=== PATIENT | female | born 1965 | race Caucasian/White ===

== ENCOUNTER 2016-12-01 11:32 | Emergency (ER) | payer MEDICAID ==
[~2016-12-01] VITALS: Ht 160 cm; Wt 70.0 kg
[~2016-12-01 11:32] MED LIST: ALBU8HFA IH; ATOR40TA28 PO; CARV3 PO; FLUD25I SQ; FLUP10 PO; LISI40TA4 PO; METF850T2 PO; MUPI22O NASAL; OXCA300T PO
[2016-12-01 12:02] LABS: GLUCOSE COMMENT 1 Repeated; GLUCOSE,POINT OF CARE 98 MG/DL (70-110)
[2016-12-01 12:21] LABS: BASOPHILS # (AUTO) 0.06 K/uL (0.00-0.20); EOSINOPHILS # (AUTO) 0.07 K/uL (0.00-0.70); HEMOGLOBIN 12.8 g/dL (12.0-16.0); MEAN CORPUSCULAR HEMOGLOBIN 28.3 pg (26.0-34.0); MEAN CORPUSCULAR HGB CONC 32.7 G/dL (31.0-37.0); MEAN CORPUSCULAR VOLUME 86 fL (80-100); MONOCYTES # (AUTO) 0.5 K/uL (0.1-1.0); MONOCYTES % (AUTO) 9.6 % (2.0-9.0); NEUTROPHILS # (AUTO) 3.9 K/uL (1.8-7.7); NEUTROPHILS % (AUTO) 70.2 % (40.0-70.0); PLATELET COUNT (AUTO) 316 K/uL (150-450); RED BLOOD CELL COUNT(AUTO) 4.51 MIL/uL (4.00-5.20); RED CELL DISTRIBUTION WIDTH 14.4 % (11.5-14.5); WHITE BLOOD COUNT (AUTO) 5.5 K/uL (4.5-11.0)
[2016-12-01 12:36] LABS: ANION GAP 6 mmol/L (8-16); CALCIUM, TOTAL 8.9 mg/dL (8.8-10.5); CARBON DIOXIDE 31 mmol/L (22-29); CHLORIDE 103 mmol/L (98-107); CREATININE 0.46 mg/dL (0.60-1.30); GLOMERULAR FILTR. RATE CALC > 60 mL/min (>60); POTASSIUM 3.9 mmol/L (3.5-5.1); SODIUM SERUM 140 mmol/L (136-145); UREA NITROGEN, BLOOD 7 mg/dL (7-18)
[2016-12-01 12:42] LABS: ALANINE AMINOTRANSFERASE 22 U/L (12-78); ALBUMIN 3.3 g/dL (3.4-5.0); ASPARTATE AMINOTRANSFERASE 17 U/L (15-37); BILIRUBIN,TOTAL 0.2 mg/dL (0.1-1.0)
[2016-12-01] MEDS ORDERED: LORazepam 2 MG TABLET PO ONE (15:45)
[2016-12-01] MEDS ORDERED: FluPHENAZine HCL 5 MG TABLET PO ONE (15:45)
[2016-12-01 16:42] VITALS: BP 141/71
== END 2016-12-01 16:56 | disposition home or self-care (01) ==
LOC: EMS 11:34
DX: F41.9 Anxiety disorder, unspecified (principal); F31.9 Bipolar disorder, unspecified; E11.9 Type 2 diabetes mellitus without complications; I10 Essential (primary) hypertension; F17.210 Nicotine dependence, cigarettes, uncomplicated; F19.90 Other psychoactive substance use, unspecified, uncomplicated; Z88.8 Allergy status to other drugs, medicaments and biological substances
CPT/HCPCS: 36415; 80053; 80307; 82962; 85025; 99284; G0480

== ENCOUNTER 2017-11-02 08:58 | Day surgery (SDC) | payer MEDICAID ==
[~2017-11-02] VITALS: Ht 160 cm; Wt 60.9 kg
[~2017-11-02 08:58] MED LIST changes: +CALC1TAB93 PO; +DIPH50 PO; +ESCI20TA PO; +ESOM20CA31 PO; -FLUD25I SQ; -FLUP10 PO; +IPRA4AER IH; +LORA10TA7 PO; -MUPI22O NASAL; -OXCA300T PO; +SODIUM CHLORIDE 0.9% 1,000 ML IV ONE; +TIOT185 IH; +URSO500T9 PO
[2017-11-02] MEDS ORDERED: LIDOCAINE HCL/PF 2% 5 ML VIAL INJ ONE (08:59)
[2017-11-02] MEDS ORDERED: PROPOFOL 1% 20 ML VIAL IVP ONE (08:59)
[2017-11-02] MEDS ORDERED: SODIUM CHLORIDE 0.9% 1,000 ML IV ONE (09:04)
[2017-11-02 10:02] LABS: GLUCOMETER DEV NAME(LOC) SDS 5; GLUCOSE,POINT OF CARE 88 MG/DL (70-110)
== END 2017-11-02 11:50 | disposition home or self-care (01) ==
LOC: SURGERY 08:58
PROVIDERS: ATTEND Internal Medicine Gastroenterology
DX: K63.5 Polyp of colon (principal); K64.8 Other hemorrhoids; K21.9 Gastro-esophageal reflux disease without esophagitis; I10 Essential (primary) hypertension; E11.9 Type 2 diabetes mellitus without complications; F17.210 Nicotine dependence, cigarettes, uncomplicated; B19.20 Unspecified viral hepatitis C without hepatic coma; J44.9 Chronic obstructive pulmonary disease, unspecified; I25.10 Atherosclerotic heart disease of native coronary artery without angina pectoris; F32.9 Major depressive disorder, single episode, unspecified; J98.19 Other pulmonary collapse; F10.21 Alcohol dependence, in remission; F12.21 Cannabis dependence, in remission; F41.9 Anxiety disorder, unspecified; Z86.74 Personal history of sudden cardiac arrest; Z86.73 Personal history of transient ischemic attack (TIA), and cerebral infarction without residual deficits; Z91.048 Other nonmedicinal substance allergy status; Z79.84 Long term (current) use of oral hypoglycemic drugs; Z98.890 Other specified postprocedural states; Z79.899 Other long term (current) drug therapy
CPT/HCPCS: 45385; 82962; 88305; C1769; J2704; J3490; J7030

== ENCOUNTER 2018-01-20 14:53 | Emergency (ER) | payer MEDICAID ==
[~2018-01-20] VITALS: Ht 160 cm; Wt 61.4 kg
[~2018-01-20 14:53] MED LIST changes: -SODIUM CHLORIDE 0.9% 1,000 ML IV ONE
[2018-01-20 15:04] LABS: GLUCOSE,POINT OF CARE 100 MG/DL (70-110)
[2018-01-20 15:34] LABS: BASOPHILS % (AUTO) 1.2 % (0.0-2.0); EOSINOPHILS % (AUTO) 3.3 % (1.0-6.0); HEMATOCRIT 37.7 % (36-46); HEMOGLOBIN 12.5 g/dL (12.0-16.0); LYMPHOCYTES # (AUTO) 1.4 K/uL (1.0-4.8); LYMPHOCYTES % (AUTO) 27.5 % (22.0-44.0); MEAN CORPUSCULAR HEMOGLOBIN 27.5 pg (26.0-34.0); MEAN CORPUSCULAR HGB CONC 33.3 G/dL (31.0-37.0); MEAN CORPUSCULAR VOLUME 83 fL (80-100); MONOCYTES # (AUTO) 0.4 K/uL (0.1-1.0); MONOCYTES % (AUTO) 8.5 % (2.0-9.0); NEUTROPHILS % (AUTO) 59.5 % (40.0-70.0); PLATELET COUNT (AUTO) 376 K/uL (150-450); RED BLOOD CELL COUNT(AUTO) 4.57 MIL/uL (4.00-5.20); RED CELL DISTRIBUTION WIDTH 15.5 % (11.5-14.5)
[2018-01-20 15:48] LABS: ANION GAP 6 mmol/L (8-16); CALCIUM, TOTAL 9.5 mg/dL (8.8-10.5); CARBON DIOXIDE 31 mmol/L (22-29); CHLORIDE 103 mmol/L (98-107); CREATININE 0.71 mg/dL (0.60-1.30); GLOMERULAR FILTR. RATE CALC > 60 mL/min (>60); GLUCOSE,RANDOM 105 mg/dL (70-110); POTASSIUM 3.9 mmol/L (3.5-5.1); SODIUM SERUM 140 mmol/L (136-145); UREA NITROGEN, BLOOD 12 mg/dL (7-18)
[2018-01-20 15:51] LABS: ALANINE AMINOTRANSFERASE 23 U/L (12-78); ALBUMIN 3.4 g/dL (3.4-5.0); ALKALINE PHOSPHATASE 141 U/L (46-116); ASPARTATE AMINOTRANSFERASE 20 U/L (15-37); BILIRUBIN,TOTAL 0.2 mg/dL (0.1-1.0); TOTAL PROTEIN, SERUM 7.4 g/dL (6.4-8.2)
[2018-01-20 16:29] LABS: AMPHET/METH SCREEN,URINE POSITIVE (NEGATIVE); APPEARANCE,URINE CLOUDY (CLEAR); BARBITURATE SCREEN, URINE NEGATIVE (NEGATIVE); BENZODIAZEPINES SCREEN,URINE NEGATIVE (NEGATIVE); BILIRUBIN,URINE NEGATIVE (NEGATIVE); CANNABINOID SCREEN,URINE NEGATIVE (NEGATIVE); COCAINE SCREEN,URINE POSITIVE (NEGATIVE); GLUCOSE, URINE (UA) NEGATIVE (NEGATIVE); KETONES,URINE TRACE mg/dL (NEGATIVE); LEUKOCYTE ESTERASE ,URINE TRACE (NEGATIVE); METHADONE SCREEN, URINE NEGATIVE (NEGATIVE); NITRATE,URINE NEGATIVE (NEGATIVE); OCCULT BLOOD,URINE NEGATIVE (NEGATIVE); OPIATE SCREEN,URINE NEGATIVE (NEGATIVE); PROTEIN,URINE POS 1+ (NEGATIVE)
[2018-01-20 16:31] LABS: PHENCYCLIDINE SCREEN,URINE NEGATIVE (NEGATIVE)
[2018-01-20 16:39] LABS: RBC,URINE None Seen /HPF (0-2)
[2018-01-20 16:40] LABS: BACTERIA,URINE Moderate /HPF (None Seen); SQUAMOUS EPITHELIAL CELL,UR Many /LPF (None Seen)
[2018-01-20 16:41] LABS: CALCIUM OXALATE CRYSTALS,UR Moderate /LPF (None Seen); MUCUS,URINE Few LPF (None Seen)
[2018-01-20] MEDS ORDERED: AZITHROMYCIN 250 MG TABLET PO ONE (17:00)
[2018-01-20] MEDS ORDERED: CefTRIAXone SODIUM 1 GM/VIAL IM ONE (17:00)
[2018-01-20] MEDS ORDERED: FLUCONAZOLE 150 MG TABLET PO ONE (17:00)
[2018-01-20] MEDS ORDERED: MetroNIDAZOLE 500 MG TABLET PO ONE (17:00)
[2018-01-20 20:25] VITALS: BP 122/64
== END 2018-01-20 20:58 | disposition home or self-care (01) ==
LOC: EMS 14:54
DX: N76.0 Acute vaginitis (principal); F15.10 Other stimulant abuse, uncomplicated; F14.10 Cocaine abuse, uncomplicated; R45.851 Suicidal ideations; I10 Essential (primary) hypertension; E11.9 Type 2 diabetes mellitus without complications; F17.210 Nicotine dependence, cigarettes, uncomplicated; Z88.8 Allergy status to other drugs, medicaments and biological substances
CPT/HCPCS: 36415; 80053; 80307; 81001; 82962; 85025; 87086; 96372; 99284; G0480; J0696

== ENCOUNTER 2018-05-17 08:34 | Emergency (ER) | payer MEDICAID ==
[~2018-05-17] VITALS: Ht 154.9 cm; Wt 63.5 kg
[~2018-05-17 08:34] MED LIST changes: +AMLO-511 PO; +ASPI-1182 PO; -CARV3 PO; -DIPH50 PO; +FLUP5 PO; +ISOS30TA6 PO; +METF-961 PO; -METF850T2 PO
[2018-05-17 08:59] LABS: GLUCOSE,POINT OF CARE 193 MG/DL (70-110)
[2018-05-17 09:47] LABS: BASOPHILS % (AUTO) 0.6 % (0.0-2.0); EOSINOPHILS % (AUTO) 3.4 % (1.0-6.0); HEMATOCRIT 40.5 % (36-46); HEMOGLOBIN 13.3 g/dL (12.0-16.0); LYMPHOCYTES # (AUTO) 1.3 K/uL (1.0-4.8); LYMPHOCYTES % (AUTO) 21.6 % (22.0-44.0); MEAN CORPUSCULAR HEMOGLOBIN 26.2 pg (26.0-34.0); MEAN CORPUSCULAR HGB CONC 32.9 G/dL (31.0-37.0); MEAN CORPUSCULAR VOLUME 80 fL (80-100); MONOCYTES # (AUTO) 0.5 K/uL (0.1-1.0); MONOCYTES % (AUTO) 9.1 % (2.0-9.0); NEUTROPHILS # (AUTO) 3.8 K/uL (1.8-7.7); NEUTROPHILS % (AUTO) 65.3 % (40.0-70.0); PLATELET COUNT (AUTO) 353 K/uL (150-450); RED BLOOD CELL COUNT(AUTO) 5.08 MIL/uL (4.00-5.20); RED CELL DISTRIBUTION WIDTH 16.8 % (11.5-14.5)
[2018-05-17 09:52] LABS: ANION GAP 7 mmol/L (8-16); CARBON DIOXIDE 29 mmol/L (22-29); CHLORIDE 104 mmol/L (98-107); CREATININE 0.73 mg/dL (0.60-1.30); GLOMERULAR FILTR. RATE CALC > 60 mL/min (>60); GLUCOSE,RANDOM 114 mg/dL (70-110); POTASSIUM 4.3 mmol/L (3.5-5.1); SODIUM SERUM 140 mmol/L (136-145); UREA NITROGEN, BLOOD 12 mg/dL (7-18)
[2018-05-17 09:57] LABS: ALANINE AMINOTRANSFERASE 21 U/L (12-78); ALBUMIN 3.1 g/dL (3.4-5.0); ALKALINE PHOSPHATASE 166 U/L (46-116); ASPARTATE AMINOTRANSFERASE 16 U/L (15-37); BILIRUBIN,TOTAL 0.4 mg/dL (0.1-1.0); TOTAL PROTEIN, SERUM 7.3 g/dL (6.4-8.2)
[2018-05-17 11:33] LABS: AMPHET/METH SCREEN,URINE POSITIVE (NEGATIVE); BARBITURATE SCREEN, URINE NEGATIVE (NEGATIVE); BENZODIAZEPINES SCREEN,URINE NEGATIVE (NEGATIVE); CANNABINOID SCREEN,URINE NEGATIVE (NEGATIVE); COCAINE SCREEN,URINE NEGATIVE (NEGATIVE); METHADONE SCREEN, URINE NEGATIVE (NEGATIVE); OPIATE SCREEN,URINE NEGATIVE (NEGATIVE)
[2018-05-17 12:07] LABS: PHENCYCLIDINE SCREEN,URINE NEGATIVE (NEGATIVE)
[2018-05-17 12:32] VITALS: BP 144/89
== END 2018-05-17 12:35 | disposition home or self-care (01) ==
LOC: EMS 08:35
DX: F20.9 Schizophrenia, unspecified (principal); F41.9 Anxiety disorder, unspecified; F31.9 Bipolar disorder, unspecified; E11.9 Type 2 diabetes mellitus without complications; E78.00 Pure hypercholesterolemia, unspecified; I10 Essential (primary) hypertension; K21.9 Gastro-esophageal reflux disease without esophagitis; J45.909 Unspecified asthma, uncomplicated; F15.90 Other stimulant use, unspecified, uncomplicated; F17.210 Nicotine dependence, cigarettes, uncomplicated; Z98.890 Other specified postprocedural states; Z79.82 Long term (current) use of aspirin; Z79.84 Long term (current) use of oral hypoglycemic drugs; Z79.899 Other long term (current) drug therapy; Z88.8 Allergy status to other drugs, medicaments and biological substances
CPT/HCPCS: 36415; 80053; 80307; 82962; 85025; 99285; G0480

== ENCOUNTER 2018-06-05 02:46 | Emergency (ER) | payer MEDICAID ==
[~2018-06-05] VITALS: Ht 152.4 cm; Wt 59.1 kg
[2018-06-05 02:58] LABS: GLUCOSE,POINT OF CARE 158 MG/DL (70-110)
[2018-06-05] MEDS ORDERED: IPRATROPIUM BROMIDE 0.5 MG/2.5 ML NEB SOLUTION NEB ONE (03:30)
[2018-06-05] MEDS ORDERED: MethylPREDNISolone SOD SUCC 125 MG/2 ML VIAL IM ONE (03:30)
[2018-06-05] MEDS ORDERED: ALBUTEROL SULFATE 5 MG/ML 20 ML NEB SOLN [BULK] NEB ONE (03:30)
[2018-06-05] MEDS ORDERED: 0.9% SODIUM CHLORIDE 5 ML NEB SOLUTION NEB ONE (03:57)
[2018-06-05] MEDS ORDERED: ALBUTEROL SULFATE 2.5 MG/0.5 ML NEB SOLUTION NEB ONE (04:00)
[2018-06-05 04:30] VITALS: BP 154/76
[2018-06-05] MEDS ORDERED: AZITHROMYCIN 250 MG TABLET PO ONE (04:45)
[2018-06-05] MEDS ORDERED: FUROSEMIDE 20 MG TABLET PO ONE (05:00)
== END 2018-06-05 05:27 | disposition home or self-care (01) ==
LOC: EMS 02:47
DX: J44.9 Chronic obstructive pulmonary disease, unspecified (principal); I11.0 Hypertensive heart disease with heart failure; I50.9 Heart failure, unspecified; K21.9 Gastro-esophageal reflux disease without esophagitis; J45.909 Unspecified asthma, uncomplicated; E11.9 Type 2 diabetes mellitus without complications; E78.00 Pure hypercholesterolemia, unspecified; F41.9 Anxiety disorder, unspecified; F31.9 Bipolar disorder, unspecified; F20.9 Schizophrenia, unspecified; F17.210 Nicotine dependence, cigarettes, uncomplicated; F19.90 Other psychoactive substance use, unspecified, uncomplicated; Z88.8 Allergy status to other drugs, medicaments and biological substances; Z79.82 Long term (current) use of aspirin; Z79.899 Other long term (current) drug therapy; Z79.84 Long term (current) use of oral hypoglycemic drugs
CPT/HCPCS: 71045; 82962; 94640; 96372; 99284; J2930

== ENCOUNTER 2021-06-28 14:36 | Inpatient (IN) | payer MEDICAID ==
[~2021-06-28] VITALS: Ht 154.9 cm; Wt 67.6 kg
[~2021-06-28 14:36] MED LIST changes: +AMLO-257 PO; -AMLO-511 PO; -ASPI-1182 PO; +ASPI-1444 PO; -ESCI20TA PO; +ESCI20TA87 PO; -FLUP5 PO; +FLUP5TAB15 PO; -ISOS30TA6 PO; +ISOS30TA92 PO; -LISI40TA4 PO; +LISI40TA9 PO; +METF-1185 PO; -METF-961 PO; +URSO500T10 PO; -URSO500T9 PO
[2021-06-28] MEDS ORDERED: LORazepam 1 MG TABLET PO ONE (16:15)
[2021-06-28 16:37] LABS: BASOPHILS % (AUTO) 1.7 % (0.0-2.0); EOSINOPHILS % (AUTO) 2.4 % (1.0-6.0); HEMATOCRIT 38.2 % (36-46); HEMOGLOBIN 12.6 g/dL (12.0-16.0); LYMPHOCYTES # (AUTO) 1.4 K/uL (1.0-4.8); LYMPHOCYTES % (AUTO) 31.2 % (22.0-44.0); MEAN CORPUSCULAR HEMOGLOBIN 25.7 pg (26.0-34.0); MEAN CORPUSCULAR HGB CONC 32.8 G/dL (31.0-37.0); MEAN CORPUSCULAR VOLUME 78 fL (80-100); MONOCYTES # (AUTO) 0.4 K/uL (0.1-1.0); MONOCYTES % (AUTO) 9.6 % (2.0-9.0); NEUTROPHILS # (AUTO) 2.4 K/uL (1.8-7.7); NEUTROPHILS % (AUTO) 55.1 % (40.0-70.0); PLATELET COUNT (AUTO) 346 K/uL (150-450); RED CELL DISTRIBUTION WIDTH 15.9 % (11.5-14.5)
[2021-06-28 16:52] LABS: ANION GAP 6 mmol/L (8-16); CARBON DIOXIDE 32 mmol/L (22-29); CHLORIDE 101 mmol/L (98-107); CREATININE 0.71 mg/dL (0.60-1.30); GLOMERULAR FILTR. RATE CALC > 60 mL/min (>60); GLUCOSE,RANDOM 130 mg/dL (70-110); POTASSIUM 3.8 mmol/L (3.5-5.1); SODIUM SERUM 139 mmol/L (136-145); UREA NITROGEN, BLOOD 7 mg/dL (7-18)
[2021-06-28 16:56] LABS: ALANINE AMINOTRANSFERASE 70 U/L (12-78); ALBUMIN 3.5 g/dL (3.4-5.0); ALKALINE PHOSPHATASE 131 U/L (46-116); ASPARTATE AMINOTRANSFERASE 36 U/L (15-37); BILIRUBIN,TOTAL 0.3 mg/dL (0.1-1.0); TOTAL PROTEIN, SERUM 7.9 g/dL (6.4-8.2)
[2021-06-28 16:57] LABS: AMPHET/METH SCREEN,URINE NEGATIVE (NEGATIVE); BARBITURATE SCREEN, URINE NEGATIVE (NEGATIVE); BENZODIAZEPINES SCREEN,URINE NEGATIVE (NEGATIVE); CANNABINOID SCREEN,URINE NEGATIVE (NEGATIVE); COCAINE SCREEN,URINE NEGATIVE (NEGATIVE); METHADONE SCREEN, URINE NEGATIVE (NEGATIVE); OPIATE SCREEN,URINE NEGATIVE (NEGATIVE)
[2021-06-28 16:58] LABS: PHENCYCLIDINE SCREEN,URINE NEGATIVE (NEGATIVE)
[2021-06-28 18:57] LABS: COVID AG,FIA SOURCE NASOPHARYNGEAL
[2021-06-28] MEDS ORDERED: OLANZapine 5 MG RAPDIS TABLET PO PRN (20:30)
[2021-06-28] MEDS ORDERED: ZOLPIDEM TARTRATE 10 MG TABLET PO PRN (20:30)
[2021-06-28] MEDS ORDERED: LORazepam 2 MG TABLET PO PRN (20:30)
[2021-06-28 21:41] LABS: APPEARANCE,URINE CLEAR (CLEAR); BILIRUBIN,URINE NEGATIVE (NEGATIVE); GLUCOSE, URINE (UA) NEGATIVE (NEGATIVE); KETONES,URINE NEGATIVE (NEGATIVE); LEUKOCYTE ESTERASE ,URINE NEGATIVE (NEGATIVE); NITRATE,URINE NEGATIVE (NEGATIVE); OCCULT BLOOD,URINE NEGATIVE (NEGATIVE); PH,URINE 6.5 (5.0-8.0); PROTEIN,URINE NEGATIVE (NEGATIVE); UROBILINOGEN,URINE 0.2 mg/dL (<=1.0)
[2021-06-29] MEDS ORDERED: PNEUMOCOCCAL VACCINE POLYVALENT 0.5 ML VIAL [PPSV23] IM. ONE (01:00)
[2021-06-29] MEDS ORDERED: INFLUENZA VIRUS VACCINE QVS 2021-22 (6MO+)/PF 60 MCG/0.5 ML SYRINGE IM. ONE (01:00)
[2021-06-29] MEDS ORDERED: ACETAMINOPHEN 325 MG TABLET PO PRN (07:45)
[2021-06-29] MEDS ORDERED: GuaiFENesin/D-METHORPHAN [SUGAR-FREE] 200-20MG/10 ML SYRUP UDCUP PO PRN (07:45)
[2021-06-29] MEDS ORDERED: FluPHENAZine HCL 5 MG TABLET PO PRN (07:45)
[2021-06-29] MEDS ORDERED: TUBERCULIN, PURIFIED PROTEIN DERIVATIVE 5 TU/0.1 ML SYRINGE ID ONE (07:45)
[2021-06-29] MEDS ORDERED: PROMETHAZINE HCL 25 MG TABLET PO PRN (07:45)
[2021-06-29] MEDS ORDERED: LOPERAMIDE HCL 2 MG CAPSULE PO PRN (07:45)
[2021-06-29] MEDS ORDERED: MAG HYDROX/AL HYDROX/SIMETH ES 30 ML SUSPENSION UDCUP PO PRN (07:45)
[2021-06-29 08:00] VITALS: BP 146/96
[2021-06-29] MEDS: FOLIC ACID 1 MG TABLET PO SCH (09:00)
[2021-06-29] MEDS: THIAMINE 100 MG TABLET PO SCH ×2 (09:00→16:14)
[2021-06-29] MEDS: OMEGA-3/DHA/EPA/FISH OIL 1,000 MG CAPSULE PO SCH (09:00)
[2021-06-29] MEDS: ESCITALOPRAM OXALATE 10 MG TABLET PO SCH (09:00)
[2021-06-29] MEDS: MULTIVITAMINS WITH MINERALS, THERAPEUTIC TABLET PO SCH (09:00)
[2021-06-29] MEDS: NALTREXONE HCL 50 MG TABLET PO SCH (09:00)
[2021-06-29] MEDS: LISINOPRIL 20 MG TABLET PO SCH (13:15)
[2021-06-29 16:00] VITALS: BP 150/69
[2021-06-29] MEDS ORDERED: PALIPERIDONE PALMITATE 234 MG/1.5 ML SYRINGE IM ONE (20:30)
[2021-06-29] MEDS: MELATONIN 5 MG TABLET PO SCH (20:35)
[2021-06-29] MEDS ORDERED: PALIPERIDONE 3 MG ER TABLET PO SCH (21:00)
[2021-06-29] MEDS ORDERED: FluPHENAZine HCL 10 MG TABLET PO SCH (21:00)
[2021-06-30 08:06] VITALS: BP 127/49
[2021-06-30] MEDS: LISINOPRIL 20 MG TABLET PO SCH (08:24)
[2021-06-30] MEDS: FOLIC ACID 1 MG TABLET PO SCH (08:24)
[2021-06-30] MEDS: ESCITALOPRAM OXALATE 10 MG TABLET PO SCH (08:24)
[2021-06-30] MEDS: MULTIVITAMINS WITH MINERALS, THERAPEUTIC TABLET PO SCH (08:24)
[2021-06-30] MEDS: MAGNESIUM HYDROXIDE SUSPENSION 30 ML UDCUP PO PRN (08:24)
[2021-06-30] MEDS: OMEGA-3/DHA/EPA/FISH OIL 1,000 MG CAPSULE PO SCH (08:24)
[2021-06-30] MEDS: THIAMINE 100 MG TABLET PO SCH ×2 (08:24→16:31)
[2021-06-30] MEDS: NALTREXONE HCL 50 MG TABLET PO SCH (08:25)
[2021-06-30] MEDS: PALIPERIDONE 1.5 MG ER TABLET PO PRN (09:41)
[2021-06-30 10:39] LABS: HEMOGLOBIN A1C 9.2 % (3.8-5.6)
[2021-06-30 10:54] LABS: CHOL/HDL RATIO 2.9 (3.9-5.7); FREE T4 (FREE THYROXINE) 1.32 ng/dL (0.76-1.46); THYROID STIMULATING HORMONE 0.78 uIU/mL (0.36-3.74)
[2021-06-30] MEDS ORDERED: DEXTROSE 50%-WATER 25 GM/50 ML SYRINGE IVP PRN (15:00)
[2021-06-30] MEDS: MetFORMIN HCL 850 MG TABLET PO SCH (16:31)
[2021-06-30 16:36] LABS: GLUCOMETER DEV NAME(LOC) 3E.C; GLUCOSE,POINT OF CARE 196 MG/DL (70-110)
[2021-06-30] MEDS: INSULIN LISPRO 100 UNITS/ML SQ PRN (17:52)
[2021-06-30] MEDS: HydrOXYzine PAMOATE 50 MG CAPSULE PO PRN (18:35)
[2021-06-30] MEDS: ATORVASTATIN CALCIUM 40 MG TABLET PO SCH (20:11)
[2021-06-30] MEDS: MELATONIN 5 MG TABLET PO SCH (20:12)
[2021-06-30 21:06] LABS: GLUCOMETER DEV NAME(LOC) 3E.C; GLUCOSE,POINT OF CARE 114 MG/DL (70-110)
[2021-07-01] MEDS: INSULIN LISPRO 100 UNITS/ML SQ PRN (06:54)
[2021-07-01] MEDS: MetFORMIN HCL 850 MG TABLET PO SCH ×2 (06:54→17:30)
[2021-07-01 06:55] LABS: GLUCOMETER DEV NAME(LOC) 3E.C; GLUCOSE,POINT OF CARE 128 MG/DL (70-110)
[2021-07-01 08:17] VITALS: BP 150/64
[2021-07-01] MEDS: THIAMINE 100 MG TABLET PO SCH ×2 (08:29→16:41)
[2021-07-01] MEDS: ESCITALOPRAM OXALATE 10 MG TABLET PO SCH (08:29)
[2021-07-01] MEDS: NALTREXONE HCL 50 MG TABLET PO SCH (08:29)
[2021-07-01] MEDS: MULTIVITAMINS WITH MINERALS, THERAPEUTIC TABLET PO SCH (08:29)
[2021-07-01] MEDS: FOLIC ACID 1 MG TABLET PO SCH (08:29)
[2021-07-01] MEDS: OMEGA-3/DHA/EPA/FISH OIL 1,000 MG CAPSULE PO SCH (08:29)
[2021-07-01] MEDS: LISINOPRIL 20 MG TABLET PO SCH (08:29)
[2021-07-01] MEDS: MAGNESIUM HYDROXIDE SUSPENSION 30 ML UDCUP PO PRN (09:18)
[2021-07-01 11:35] LABS: GLUCOMETER DEV NAME(LOC) 3E.C; GLUCOSE,POINT OF CARE 140 MG/DL (70-110)
[2021-07-01 16:33] LABS: GLUCOMETER DEV NAME(LOC) 3E.C; GLUCOSE,POINT OF CARE 125 MG/DL (70-110)
[2021-07-01] MEDS: HydrOXYzine PAMOATE 50 MG CAPSULE PO PRN (16:41)
[2021-07-01 17:09] VITALS: BP 133/66
[2021-07-01] MEDS: ATORVASTATIN CALCIUM 40 MG TABLET PO SCH (20:56)
[2021-07-01] MEDS: MELATONIN 5 MG TABLET PO SCH (20:56)
[2021-07-01 21:14] LABS: GLUCOMETER DEV NAME(LOC) 3E.C; GLUCOSE,POINT OF CARE 92 MG/DL (70-110)
[2021-07-02 06:47] LABS: GLUCOMETER DEV NAME(LOC) 3E.C; GLUCOSE,POINT OF CARE 149 MG/DL (70-110)
[2021-07-02] MEDS: MetFORMIN HCL 850 MG TABLET PO SCH ×2 (06:50→17:30)
[2021-07-02] MEDS: INSULIN LISPRO 100 UNITS/ML SQ PRN ×2 (06:51→17:30)
[2021-07-02 08:19] VITALS: BP 164/81
[2021-07-02] MEDS: ESCITALOPRAM OXALATE 10 MG TABLET PO SCH (08:45)
[2021-07-02] MEDS: HydrOXYzine PAMOATE 50 MG CAPSULE PO PRN (08:45)
[2021-07-02] MEDS: MULTIVITAMINS WITH MINERALS, THERAPEUTIC TABLET PO SCH (08:45)
[2021-07-02] MEDS: LISINOPRIL 20 MG TABLET PO SCH (08:45)
[2021-07-02] MEDS: THIAMINE 100 MG TABLET PO SCH ×2 (08:45→16:25)
[2021-07-02] MEDS: OMEGA-3/DHA/EPA/FISH OIL 1,000 MG CAPSULE PO SCH (08:45)
[2021-07-02] MEDS: FOLIC ACID 1 MG TABLET PO SCH (08:45)
[2021-07-02] MEDS: PALIPERIDONE 1.5 MG ER TABLET PO PRN (08:46)
[2021-07-02] MEDS: NALTREXONE HCL 50 MG TABLET PO SCH (08:46)
[2021-07-02] MEDS: MAGNESIUM HYDROXIDE SUSPENSION 30 ML UDCUP PO PRN (08:48)
[2021-07-02] MEDS ORDERED: CALCIUM OYSTER SHELL 250 MG-VIT D3 125 UNITS TABLET PO SCH (09:00)
[2021-07-02] MEDS ORDERED: ESOMEPRAZOLE MAG TRIHYDRATE 20 MG CAPSULE PO SCH (09:00)
[2021-07-02] MEDS ORDERED: AmLODIPine BESYLATE 5 MG TABLET PO SCH (09:00)
[2021-07-02] MEDS ORDERED: ASPIRIN 81 MG CHEWABLE TABLET PO SCH (09:00)
[2021-07-02] MEDS ORDERED: LORATADINE 10 MG TABLET PO SCH (09:00)
[2021-07-02 11:52] LABS: GLUCOMETER DEV NAME(LOC) 3E.C; GLUCOSE,POINT OF CARE 118 MG/DL (70-110)
[2021-07-02] MEDS ORDERED: OMEG-135 PO (15:19)
[2021-07-02] MEDS ORDERED: MELA5TAB40 PO (15:19)
[2021-07-02] MEDS ORDERED: PALI117D IM (15:19)
[2021-07-02] MEDS ORDERED: NALT50TA PO (15:19)
[2021-07-02] MEDS ORDERED: ESCI10 PO (15:19)
[2021-07-02 15:51] LABS: GLUCOMETER DEV NAME(LOC) 3E.C; GLUCOSE,POINT OF CARE 221 MG/DL (70-110)
[2021-07-02 16:16] VITALS: BP 151/81
[2021-07-02] MEDS ORDERED: PALIPERIDONE PALMITATE 156 MG/ML SYRINGE IM ONE (16:30)
[2021-07-02] MEDS ORDERED: LORA10TA7 PO (16:41)
[2021-07-03] MEDS ORDERED: PALIPERIDONE PALMITATE 156 MG/ML SYRINGE IM ONE (09:00)
== END 2021-07-02 19:30 | disposition home or self-care (01) | DRG 750 ==
LOC: EMS 14:36 → 3EC 20:29
PROVIDERS: ADMIT Psychiatry & Neurology Psychiatry; ATTEND Psychiatry & Neurology Psychiatry
DX: F25.9 Schizoaffective disorder, unspecified (principal); E11.9 Type 2 diabetes mellitus without complications; E78.00 Pure hypercholesterolemia, unspecified; E78.5 Hyperlipidemia, unspecified; F17.210 Nicotine dependence, cigarettes, uncomplicated; Z20.822 Contact with and (suspected) exposure to COVID-19; F41.9 Anxiety disorder, unspecified; K21.9 Gastro-esophageal reflux disease without esophagitis; F60.0 Paranoid personality disorder; I10 Essential (primary) hypertension; J44.9 Chronic obstructive pulmonary disease, unspecified; Z55.9 Problems related to education and literacy, unspecified; Z59.9 Problem related to housing and economic circumstances, unspecified; Z63.9 Problem related to primary support group, unspecified; Z65.3 Problems related to other legal circumstances; Z85.118 Personal history of other malignant neoplasm of bronchus and lung; Z87.01 Personal history of pneumonia (recurrent); Z91.14 Patient's other noncompliance with medication regimen; Z91.19 Patient's noncompliance with other medical treatment and regimen; Z28.21 Immunization not carried out because of patient refusal; Z88.8 Allergy status to other drugs, medicaments and biological substances; Z79.899 Other long term (current) drug therapy; Z79.82 Long term (current) use of aspirin
CPT/HCPCS: 80053; 80061; 81003; 82962; 83036; 83880; 84439; 84443; 85025; 86592; 93005; 99285; G0480; Q9967

== ENCOUNTER 2022-01-25 08:42 | Inpatient (IN) | payer MEDICAID ==
[~2022-01-25] VITALS: Ht 154.9 cm; Wt 68.5 kg
[~2022-01-25 08:42] MED LIST changes: +AMIO200 PO; -AMLO-257 PO; +APIX5TAB PO; +ATOR40TA71 PO; -CALC1TAB93 PO; +ESCI10 PO; -ESCI20TA87 PO; -ESOM20CA31 PO; -FLUP5TAB15 PO; -IPRA4AER IH; -ISOS30TA92 PO; +MAG30ORA11 PO; +MELA5TAB40 PO; +METO25 PO; +NALT50TA PO; +OLAN5TAB52 PO; +OMEG-135 PO; +PALI117D IM; +POLY238P PO; +RISP1TAB98 PO; -TIOT185 IH; -URSO500T10 PO
[2022-01-25 09:19] LABS: BASOPHILS % (AUTO) 1.1 % (0.0-2.0); EOSINOPHILS % (AUTO) 1.6 % (1.0-6.0); HEMATOCRIT 35.6 % (36-46); HEMOGLOBIN 11.3 g/dL (12.0-16.0); LYMPHOCYTES # (AUTO) 1.2 K/uL (1.0-4.8); LYMPHOCYTES % (AUTO) 20.3 % (22.0-44.0); MEAN CORPUSCULAR HEMOGLOBIN 23.9 pg (26.0-34.0); MEAN CORPUSCULAR HGB CONC 31.7 G/dL (31.0-37.0); MEAN CORPUSCULAR VOLUME 75 fL (80-100); MONOCYTES # (AUTO) 0.3 K/uL (0.1-1.0); MONOCYTES % (AUTO) 5.6 % (2.0-9.0); NEUTROPHILS # (AUTO) 4.2 K/uL (1.8-7.7); NEUTROPHILS % (AUTO) 71.4 % (40.0-70.0); PLATELET COUNT (AUTO) 384 K/uL (150-450); RED BLOOD CELL COUNT(AUTO) 4.73 MIL/uL (4.00-5.20)
[2022-01-25 09:36] LABS: COVID AG,FIA SOURCE NASOPHARYNGEAL
[2022-01-25 09:37] LABS: ALANINE AMINOTRANSFERASE 30 U/L (12-78); ALBUMIN 2.9 g/dL (3.4-5.0); ALKALINE PHOSPHATASE 136 U/L (46-116); ANION GAP 6 mmol/L (8-16); ASPARTATE AMINOTRANSFERASE 23 U/L (15-37); BILIRUBIN,TOTAL 0.3 mg/dL (0.1-1.0); CARBON DIOXIDE 27 mmol/L (22-29); CHLORIDE 101 mmol/L (98-107); CREATININE 0.58 mg/dL (0.60-1.30); GLUCOSE,RANDOM 119 mg/dL (70-110); POTASSIUM 4.1 mmol/L (3.5-5.1); SODIUM SERUM 134 mmol/L (136-145); TOTAL PROTEIN, SERUM 7.1 g/dL (6.4-8.2); UREA NITROGEN, BLOOD 12 mg/dL (7-18)
[2022-01-25 09:38] LABS: GLOMERULAR FILTR. RATE CALC > 60 mL/min (>60)
[2022-01-25 14:45] VITALS: BP 165/73
[2022-01-25] MEDS ORDERED: ALBUTEROL SULFATE HFA 90 MCG/PUFF 8 GM INHALER IH PRN (15:45)
[2022-01-25 16:00] VITALS: BP 204/93
[2022-01-25] MEDS: METOPROLOL TARTRATE 25 MG TABLET PO SCH (16:37)
[2022-01-25] MEDS: APIXABAN 5 MG TABLET PO SCH (16:37)
[2022-01-25] MEDS: MetFORMIN HCL 850 MG TABLET PO SCH (16:37)
[2022-01-25] MEDS: AmLODIPine BESYLATE 5 MG TABLET PO SCH (16:38)
[2022-01-25 18:00] VITALS: BP 170/85
[2022-01-25] MEDS ORDERED: CloNIDine HCL 0.1 MG TABLET PO PRN (20:00)
[2022-01-25] MEDS ORDERED: DOCUSATE SODIUM 100 MG CAPSULE PO PRN (20:00)
[2022-01-25 20:10] VITALS: BP 165/86
[2022-01-25 21:10] VITALS: BP 145/84
[2022-01-25] MEDS: ATORVASTATIN CALCIUM 40 MG TABLET PO SCH (21:58)
[2022-01-26] MEDS: MetFORMIN HCL 850 MG TABLET PO SCH ×2 (06:51→16:09)
[2022-01-26] MEDS ORDERED: NICOTINE 14 MG/24 HOUR PATCH TD PRN (07:00)
[2022-01-26] MEDS ORDERED: IBUPROFEN 400 MG TABLET PO PRN (07:00)
[2022-01-26] MEDS ORDERED: ACETAMINOPHEN 325 MG TABLET PO PRN (07:00)
[2022-01-26] MEDS ORDERED: PETROLATUM,WHITE 28 GM JELLY TP PRN (07:00)
[2022-01-26] MEDS ORDERED: LOPERAMIDE HCL 2 MG CAPSULE PO PRN (07:00)
[2022-01-26] MEDS ORDERED: ALBUTEROL SULFATE HFA 90 MCG/PUFF 8 GM INHALER IH PRN (07:00)
[2022-01-26] MEDS ORDERED: ONDANSETRON HCL 4 MG TABLET PO PRN (07:00)
[2022-01-26] MEDS ORDERED: GuaiFENesin/D-METHORPHAN [SUGAR-FREE] 200-20MG/10 ML SYRUP UDCUP PO PRN (07:00)
[2022-01-26 08:28] VITALS: BP 140/60
[2022-01-26] MEDS: AmLODIPine BESYLATE 5 MG TABLET PO SCH (08:36)
[2022-01-26] MEDS: METOPROLOL TARTRATE 25 MG TABLET PO SCH ×2 (08:36→16:10)
[2022-01-26] MEDS: APIXABAN 5 MG TABLET PO SCH ×2 (08:36→16:10)
[2022-01-26] MEDS: RisperiDONE 1 MG TABLET PO SCH (16:10)
[2022-01-26 16:32] VITALS: BP 132/60
[2022-01-26] MEDS: ATORVASTATIN CALCIUM 40 MG TABLET PO SCH (20:36)
[2022-01-26] MEDS: OLANZapine 5 MG TABLET PO SCH (20:36)
[2022-01-27 06:34] LABS: HEMOGLOBIN A1C 6.8 % (3.8-5.6)
[2022-01-27] MEDS: MetFORMIN HCL 850 MG TABLET PO SCH ×2 (06:36→16:36)
[2022-01-27 06:38] LABS: ALANINE AMINOTRANSFERASE 23 U/L (12-78); ALBUMIN 2.8 g/dL (3.4-5.0); ALKALINE PHOSPHATASE 123 U/L (46-116); ANION GAP 7 mmol/L (8-16); ASPARTATE AMINOTRANSFERASE 17 U/L (15-37); BILIRUBIN,TOTAL 0.5 mg/dL (0.1-1.0); CALCIUM, TOTAL 9.1 mg/dL (8.8-10.5); CARBON DIOXIDE 27 mmol/L (22-29); CHLORIDE 103 mmol/L (98-107); CREATININE 0.62 mg/dL (0.60-1.30); GLUCOSE,RANDOM 102 mg/dL (70-110); POTASSIUM 3.9 mmol/L (3.5-5.1); SODIUM SERUM 137 mmol/L (136-145); TOTAL PROTEIN, SERUM 6.6 g/dL (6.4-8.2); UREA NITROGEN, BLOOD 8 mg/dL (7-18)
[2022-01-27 06:40] LABS: GLOMERULAR FILTR. RATE CALC > 60 mL/min (>60)
[2022-01-27 07:57] LABS: CHOL/HDL RATIO 3.4 (3.9-5.7); CHOLESTEROL 186 mg/dL (131-200); HDL CHOLESTEROL 54 mg/dL (40-60); LDL CHOL (CALC.) 111 mg/dL (0-130); TRIGLYCERIDES 104 mg/dL (15-150)
[2022-01-27 08:00] VITALS: BP 133/69
[2022-01-27] MEDS: METOPROLOL TARTRATE 25 MG TABLET PO SCH ×2 (08:18→16:46)
[2022-01-27] MEDS: AmLODIPine BESYLATE 5 MG TABLET PO SCH (08:18)
[2022-01-27] MEDS: APIXABAN 5 MG TABLET PO SCH ×2 (08:18→16:20)
[2022-01-27] MEDS: RisperiDONE 1 MG TABLET PO SCH ×2 (08:19→16:21)
[2022-01-27 16:01] VITALS: BP 121/49
[2022-01-27] MEDS: ATORVASTATIN CALCIUM 40 MG TABLET PO SCH (20:17)
[2022-01-27] MEDS: OLANZapine 5 MG TABLET PO SCH (20:17)
[2022-01-27] MEDS: DOCUSATE SODIUM 100 MG CAPSULE PO PRN (20:21)
[2022-01-28] MEDS: MetFORMIN HCL 850 MG TABLET PO SCH ×2 (06:55→16:30)
[2022-01-28] MEDS: APIXABAN 5 MG TABLET PO SCH ×2 (08:20→16:28)
[2022-01-28] MEDS: AmLODIPine BESYLATE 5 MG TABLET PO SCH (08:21)
[2022-01-28] MEDS: METOPROLOL TARTRATE 25 MG TABLET PO SCH ×2 (08:21→16:28)
[2022-01-28] MEDS: RisperiDONE 1 MG TABLET PO SCH ×2 (08:22→16:29)
[2022-01-28 08:40] VITALS: BP 131/58
[2022-01-28 16:25] VITALS: BP 128/79
[2022-01-28] MEDS: MAGNESIUM HYDROXIDE SUSPENSION 30 ML UDCUP PO PRN (16:57)
[2022-01-28] MEDS: ATORVASTATIN CALCIUM 40 MG TABLET PO SCH (20:34)
[2022-01-28] MEDS: OLANZapine 5 MG TABLET PO SCH (20:34)
[2022-01-29] MEDS: MetFORMIN HCL 850 MG TABLET PO SCH ×2 (06:55→16:55)
[2022-01-29 08:00] VITALS: BP 151/58
[2022-01-29] MEDS: METOPROLOL TARTRATE 25 MG TABLET PO SCH ×2 (08:39→16:55)
[2022-01-29] MEDS: AmLODIPine BESYLATE 5 MG TABLET PO SCH (08:39)
[2022-01-29] MEDS: RisperiDONE 1 MG TABLET PO SCH ×2 (08:39→16:55)
[2022-01-29] MEDS: APIXABAN 5 MG TABLET PO SCH ×2 (08:40→16:55)
[2022-01-29 16:10] VITALS: BP 107/60
[2022-01-29] MEDS: ATORVASTATIN CALCIUM 40 MG TABLET PO SCH (20:14)
[2022-01-29] MEDS: OLANZapine 5 MG TABLET PO SCH (20:14)
[2022-01-29] MEDS: MAGNESIUM HYDROXIDE SUSPENSION 30 ML UDCUP PO PRN (20:55)
[2022-01-30 08:57] VITALS: BP 128/60
[2022-01-30 09:00] VITALS: BP 128/60
[2022-01-30] MEDS: RisperiDONE 1 MG TABLET PO SCH ×2 (09:12→16:04)
[2022-01-30] MEDS: METOPROLOL TARTRATE 25 MG TABLET PO SCH ×2 (09:12→16:05)
[2022-01-30] MEDS: AmLODIPine BESYLATE 5 MG TABLET PO SCH (09:12)
[2022-01-30] MEDS: APIXABAN 5 MG TABLET PO SCH ×2 (09:17→16:04)
[2022-01-30 16:32] VITALS: BP 118/60
[2022-01-30] MEDS: MetFORMIN HCL 850 MG TABLET PO SCH ×2 (16:53→17:12)
[2022-01-30] MEDS: OLANZapine 5 MG TABLET PO SCH (20:06)
[2022-01-30] MEDS: ATORVASTATIN CALCIUM 40 MG TABLET PO SCH (20:06)
[2022-01-30 20:22] VITALS: BP 130/55
[2022-01-31] MEDS: MetFORMIN HCL 850 MG TABLET PO SCH ×2 (06:50→16:09)
[2022-01-31 07:10] LABS: COVID AG,FIA SOURCE NASAL SWAB
[2022-01-31] MEDS: RisperiDONE 1 MG TABLET PO SCH ×2 (08:15→16:10)
[2022-01-31] MEDS: APIXABAN 5 MG TABLET PO SCH ×2 (08:15→16:09)
[2022-01-31] MEDS: METOPROLOL TARTRATE 25 MG TABLET PO SCH ×2 (08:16→16:10)
[2022-01-31] MEDS: AmLODIPine BESYLATE 5 MG TABLET PO SCH (08:16)
[2022-01-31 08:30] VITALS: BP 126/57
[2022-01-31 16:04] VITALS: BP 120/69
[2022-01-31 17:46] LABS: GLUCOMETER DEV NAME(LOC) 3EX.; GLUCOSE,POINT OF CARE 96 MG/DL (70-110)
[2022-01-31] MEDS: ATORVASTATIN CALCIUM 40 MG TABLET PO SCH (20:03)
[2022-01-31] MEDS: OLANZapine 5 MG TABLET PO SCH (20:03)
[2022-02-01 01:15] VITALS: BP 152/58
[2022-02-01] MEDS: ZOLPIDEM TARTRATE 10 MG TABLET PO PRN ×2 (01:15→20:19)
[2022-02-01] MEDS: MetFORMIN HCL 850 MG TABLET PO SCH ×2 (06:48→17:40)
[2022-02-01 07:31] LABS: GLUCOMETER DEV NAME(LOC) 3E.I 2; GLUCOSE,POINT OF CARE 102 MG/DL (70-110)
[2022-02-01 08:00] VITALS: BP 121/52
[2022-02-01] MEDS: APIXABAN 5 MG TABLET PO SCH ×2 (10:31→17:40)
[2022-02-01] MEDS: AmLODIPine BESYLATE 5 MG TABLET PO SCH (10:33)
[2022-02-01] MEDS: RisperiDONE 1 MG TABLET PO SCH ×2 (10:33→17:40)
[2022-02-01] MEDS: METOPROLOL TARTRATE 25 MG TABLET PO SCH ×2 (10:40→17:40)
[2022-02-01 16:00] VITALS: BP 104/68
[2022-02-01 16:37] LABS: GLUCOMETER DEV NAME(LOC) 3E.I 2; GLUCOSE,POINT OF CARE 119 MG/DL (70-110)
[2022-02-01] MEDS: OLANZapine 5 MG TABLET PO SCH (20:19)
[2022-02-01] MEDS: ATORVASTATIN CALCIUM 40 MG TABLET PO SCH (20:19)
[2022-02-02 06:41] LABS: GLUCOMETER DEV NAME(LOC) 3E.I 2; GLUCOSE,POINT OF CARE 103 MG/DL (70-110)
[2022-02-02] MEDS: MetFORMIN HCL 850 MG TABLET PO SCH ×2 (06:47→16:38)
[2022-02-02] MEDS: APIXABAN 5 MG TABLET PO SCH ×2 (08:41→16:38)
[2022-02-02] MEDS: RisperiDONE 1 MG TABLET PO SCH ×2 (08:43→16:38)
[2022-02-02] MEDS: METOPROLOL TARTRATE 25 MG TABLET PO SCH ×2 (08:43→16:38)
[2022-02-02] MEDS: AmLODIPine BESYLATE 5 MG TABLET PO SCH (08:43)
[2022-02-02 08:52] VITALS: BP 138/85
[2022-02-02 16:11] VITALS: BP 108/65
[2022-02-02 16:26] LABS: GLUCOMETER DEV NAME(LOC) 3EX.; GLUCOSE,POINT OF CARE 127 MG/DL (70-110)
[2022-02-02] MEDS: ATORVASTATIN CALCIUM 40 MG TABLET PO SCH (21:14)
[2022-02-02] MEDS: OLANZapine 5 MG TABLET PO SCH (21:14)
[2022-02-03 00:10] VITALS: BP 130/56
[2022-02-03] MEDS: ZOLPIDEM TARTRATE 10 MG TABLET PO PRN ×2 (00:13→20:06)
[2022-02-03 06:21] LABS: GLUCOMETER DEV NAME(LOC) 3EX.; GLUCOSE,POINT OF CARE 101 MG/DL (70-110)
[2022-02-03] MEDS: MetFORMIN HCL 850 MG TABLET PO SCH ×2 (06:46→16:39)
[2022-02-03 08:05] VITALS: BP 139/60
[2022-02-03] MEDS: AmLODIPine BESYLATE 5 MG TABLET PO SCH (09:14)
[2022-02-03] MEDS: METOPROLOL TARTRATE 25 MG TABLET PO SCH ×2 (09:14→16:39)
[2022-02-03] MEDS: APIXABAN 5 MG TABLET PO SCH ×2 (09:15→16:39)
[2022-02-03] MEDS: RisperiDONE 1 MG TABLET PO SCH ×2 (09:16→16:40)
[2022-02-03 16:25] LABS: GLUCOMETER DEV NAME(LOC) 3EX.; GLUCOSE,POINT OF CARE 157 MG/DL (70-110)
[2022-02-03 16:28] VITALS: BP 158/68
[2022-02-03] MEDS: OLANZapine 5 MG TABLET PO SCH (20:05)
[2022-02-03] MEDS: ATORVASTATIN CALCIUM 40 MG TABLET PO SCH (20:06)
[2022-02-04 06:26] LABS: GLUCOMETER DEV NAME(LOC) 3E.I 2; GLUCOSE,POINT OF CARE 103 MG/DL (70-110)
[2022-02-04] MEDS: MetFORMIN HCL 850 MG TABLET PO SCH ×2 (06:46→16:17)
[2022-02-04 09:56] VITALS: BP 123/60
[2022-02-04] MEDS: APIXABAN 5 MG TABLET PO SCH ×2 (10:48→16:17)
[2022-02-04] MEDS: METOPROLOL TARTRATE 25 MG TABLET PO SCH ×2 (10:49→16:17)
[2022-02-04] MEDS: RisperiDONE 1 MG TABLET PO SCH ×2 (10:49→16:17)
[2022-02-04] MEDS: AmLODIPine BESYLATE 5 MG TABLET PO SCH (10:49)
[2022-02-04 16:14] VITALS: BP 106/56
[2022-02-04 17:27] LABS: GLUCOMETER DEV NAME(LOC) 3E.I 2; GLUCOSE,POINT OF CARE 186 MG/DL (70-110)
[2022-02-04] MEDS: ATORVASTATIN CALCIUM 40 MG TABLET PO SCH (20:04)
[2022-02-04] MEDS: ZOLPIDEM TARTRATE 10 MG TABLET PO PRN (20:04)
[2022-02-04] MEDS: OLANZapine 5 MG TABLET PO SCH (20:04)
[2022-02-05 06:31] LABS: GLUCOMETER DEV NAME(LOC) 3E.I 2; GLUCOSE,POINT OF CARE 87 MG/DL (70-110)
[2022-02-05] MEDS: MetFORMIN HCL 850 MG TABLET PO SCH ×2 (06:53→16:43)
[2022-02-05 09:22] VITALS: BP 114/60
[2022-02-05] MEDS: APIXABAN 5 MG TABLET PO SCH ×2 (09:53→16:08)
[2022-02-05] MEDS: RisperiDONE 1 MG TABLET PO SCH ×2 (09:53→16:08)
[2022-02-05] MEDS: AmLODIPine BESYLATE 5 MG TABLET PO SCH (09:53)
[2022-02-05] MEDS: METOPROLOL TARTRATE 25 MG TABLET PO SCH ×2 (09:54→16:09)
[2022-02-05 16:20] VITALS: BP 106/68
[2022-02-05 16:46] LABS: GLUCOMETER DEV NAME(LOC) 3EX.; GLUCOSE,POINT OF CARE 144 MG/DL (70-110)
[2022-02-05] MEDS: DOCUSATE SODIUM 100 MG CAPSULE PO PRN (16:48)
[2022-02-05] MEDS: ATORVASTATIN CALCIUM 40 MG TABLET PO SCH (20:16)
[2022-02-05] MEDS: OLANZapine 5 MG TABLET PO SCH (20:20)
[2022-02-06] MEDS: ZOLPIDEM TARTRATE 10 MG TABLET PO PRN ×2 (02:12→22:27)
[2022-02-06 02:29] VITALS: BP 114/62
[2022-02-06 06:31] LABS: GLUCOMETER DEV NAME(LOC) 3E.I 2; GLUCOSE,POINT OF CARE 83 MG/DL (70-110)
[2022-02-06] MEDS: MetFORMIN HCL 850 MG TABLET PO SCH ×2 (06:47→16:31)
[2022-02-06] MEDS: RisperiDONE 1 MG TABLET PO SCH ×2 (08:42→16:31)
[2022-02-06] MEDS: AmLODIPine BESYLATE 5 MG TABLET PO SCH (08:44)
[2022-02-06] MEDS: APIXABAN 5 MG TABLET PO SCH ×2 (08:44→16:31)
[2022-02-06] MEDS: METOPROLOL TARTRATE 25 MG TABLET PO SCH ×2 (08:44→16:31)
[2022-02-06 09:26] VITALS: BP 122/61
[2022-02-06 09:33] VITALS: BP 122/61
[2022-02-06 16:08] VITALS: BP 129/79
[2022-02-06 17:51] LABS: GLUCOMETER DEV NAME(LOC) 3E.I 2; GLUCOSE,POINT OF CARE 100 MG/DL (70-110)
[2022-02-06] MEDS: ATORVASTATIN CALCIUM 40 MG TABLET PO SCH (20:29)
[2022-02-06] MEDS: OLANZapine 5 MG TABLET PO SCH (20:29)
[2022-02-07 06:21] LABS: GLUCOMETER DEV NAME(LOC) 3E.I 2; GLUCOSE,POINT OF CARE 96 MG/DL (70-110)
[2022-02-07] MEDS: MetFORMIN HCL 850 MG TABLET PO SCH ×2 (06:53→16:33)
[2022-02-07 07:46] LABS: COVID AG,FIA SOURCE NASAL SWAB
[2022-02-07 08:12] VITALS: BP 127/62
[2022-02-07] MEDS: AmLODIPine BESYLATE 5 MG TABLET PO SCH (09:41)
[2022-02-07] MEDS: RisperiDONE 1 MG TABLET PO SCH ×2 (09:41→16:32)
[2022-02-07] MEDS: APIXABAN 5 MG TABLET PO SCH ×2 (09:42→16:32)
[2022-02-07] MEDS: METOPROLOL TARTRATE 25 MG TABLET PO SCH ×2 (09:42→16:46)
[2022-02-07] MEDS: LORazepam 2 MG TABLET PO PRN (12:40)
[2022-02-07 16:17] VITALS: BP 112/45
[2022-02-07 16:30] VITALS: BP 125/62
[2022-02-07 18:17] LABS: GLUCOMETER DEV NAME(LOC) 3E.I 2; GLUCOSE,POINT OF CARE 116 MG/DL (70-110)
[2022-02-07] MEDS: ATORVASTATIN CALCIUM 40 MG TABLET PO SCH (20:58)
[2022-02-07] MEDS: OLANZapine 5 MG TABLET PO SCH (20:59)
[2022-02-07] MEDS: ZOLPIDEM TARTRATE 10 MG TABLET PO PRN (21:02)
[2022-02-08 06:22] LABS: GLUCOMETER DEV NAME(LOC) 3E.I 2; GLUCOSE,POINT OF CARE 109 MG/DL (70-110)
[2022-02-08] MEDS: MetFORMIN HCL 850 MG TABLET PO SCH ×2 (06:45→16:45)
[2022-02-08 08:30] VITALS: BP 102/59
[2022-02-08] MEDS: RisperiDONE 1 MG TABLET PO SCH ×2 (08:40→16:44)
[2022-02-08] MEDS: APIXABAN 5 MG TABLET PO SCH ×2 (08:40→16:43)
[2022-02-08] MEDS: METOPROLOL TARTRATE 25 MG TABLET PO SCH ×2 (09:00→16:44)
[2022-02-08] MEDS: AmLODIPine BESYLATE 5 MG TABLET PO SCH (09:00)
[2022-02-08 16:41] LABS: GLUCOMETER DEV NAME(LOC) 3EX.; GLUCOSE,POINT OF CARE 131 MG/DL (70-110)
[2022-02-08 16:52] VITALS: BP 121/98
[2022-02-08] MEDS: ATORVASTATIN CALCIUM 40 MG TABLET PO SCH (20:10)
[2022-02-08] MEDS: OLANZapine 5 MG TABLET PO SCH (20:10)
[2022-02-09 05:26] LABS: GLUCOMETER DEV NAME(LOC) 3E.I 2; GLUCOSE,POINT OF CARE 106 MG/DL (70-110)
[2022-02-09] MEDS: MetFORMIN HCL 850 MG TABLET PO SCH ×2 (07:02→16:44)
[2022-02-09] MEDS: RisperiDONE 1 MG TABLET PO SCH ×2 (08:37→16:44)
[2022-02-09] MEDS: APIXABAN 5 MG TABLET PO SCH ×2 (08:37→16:44)
[2022-02-09] MEDS: AmLODIPine BESYLATE 5 MG TABLET PO SCH (08:37)
[2022-02-09] MEDS: METOPROLOL TARTRATE 25 MG TABLET PO SCH (08:38)
[2022-02-09] MEDS: MAG HYDROX/AL HYDROX/SIMETH ES 30 ML SUSPENSION UDCUP PO PRN (09:51)
[2022-02-09 10:14] VITALS: BP 148/70
[2022-02-09 16:11] VITALS: BP 111/69
[2022-02-09 16:56] LABS: GLUCOMETER DEV NAME(LOC) 3EX.; GLUCOSE,POINT OF CARE 182 MG/DL (70-110)
[2022-02-09] MEDS: OLANZapine 5 MG TABLET PO SCH (20:55)
[2022-02-09] MEDS: ATORVASTATIN CALCIUM 40 MG TABLET PO SCH (20:55)
[2022-02-10 05:42] LABS: GLUCOMETER DEV NAME(LOC) 3E.I 2; GLUCOSE,POINT OF CARE 93 MG/DL (70-110)
[2022-02-10] MEDS: MetFORMIN HCL 850 MG TABLET PO SCH ×2 (06:34→16:38)
[2022-02-10 08:00] VITALS: BP 147/71
[2022-02-10] MEDS: RisperiDONE 1 MG TABLET PO SCH ×2 (08:47→16:38)
[2022-02-10] MEDS: APIXABAN 5 MG TABLET PO SCH ×2 (08:47→16:38)
[2022-02-10] MEDS: AmLODIPine BESYLATE 5 MG TABLET PO SCH (08:47)
[2022-02-10 16:00] VITALS: BP 129/79
[2022-02-10 16:26] LABS: GLUCOMETER DEV NAME(LOC) 3EX.; GLUCOSE,POINT OF CARE 118 MG/DL (70-110)
[2022-02-10] MEDS: ATORVASTATIN CALCIUM 40 MG TABLET PO SCH (21:39)
[2022-02-10] MEDS: OLANZapine 5 MG TABLET PO SCH (21:39)
[2022-02-11 06:28] LABS: GLUCOMETER DEV NAME(LOC) 3E.I 2; GLUCOSE,POINT OF CARE 114 MG/DL (70-110)
[2022-02-11] MEDS: MetFORMIN HCL 850 MG TABLET PO SCH ×2 (06:46→18:29)
[2022-02-11 08:00] VITALS: BP 131/74
[2022-02-11] MEDS: APIXABAN 5 MG TABLET PO SCH ×2 (10:05→16:24)
[2022-02-11] MEDS: RisperiDONE 1 MG TABLET PO SCH ×2 (10:05→16:24)
[2022-02-11] MEDS: AmLODIPine BESYLATE 5 MG TABLET PO SCH (10:05)
[2022-02-11 16:00] VITALS: BP 109/69
[2022-02-11 16:56] LABS: GLUCOMETER DEV NAME(LOC) 3E.I 2; GLUCOSE,POINT OF CARE 176 MG/DL (70-110)
[2022-02-11] MEDS: ATORVASTATIN CALCIUM 40 MG TABLET PO SCH (20:03)
[2022-02-11] MEDS: OLANZapine 5 MG TABLET PO SCH (20:03)
[2022-02-12 04:05] VITALS: BP 153/75
[2022-02-12] MEDS: LORazepam 2 MG TABLET PO PRN (04:05)
[2022-02-12 05:56] LABS: GLUCOMETER DEV NAME(LOC) 3E.I 2; GLUCOSE,POINT OF CARE 109 MG/DL (70-110)
[2022-02-12] MEDS: MetFORMIN HCL 850 MG TABLET PO SCH ×2 (06:33→17:52)
[2022-02-12 08:00] VITALS: BP 122/64
[2022-02-12] MEDS: AmLODIPine BESYLATE 5 MG TABLET PO SCH (10:23)
[2022-02-12] MEDS: APIXABAN 5 MG TABLET PO SCH ×2 (10:23→16:58)
[2022-02-12] MEDS: RisperiDONE 1 MG TABLET PO SCH ×2 (10:23→16:58)
[2022-02-12 16:00] VITALS: BP 100/60
[2022-02-12 17:21] LABS: GLUCOMETER DEV NAME(LOC) 3E.I 2; GLUCOSE,POINT OF CARE 112 MG/DL (70-110)
[2022-02-12] MEDS: OLANZapine 5 MG TABLET PO SCH (21:13)
[2022-02-12] MEDS: ATORVASTATIN CALCIUM 40 MG TABLET PO SCH (21:13)
[2022-02-13] MEDS: MetFORMIN HCL 850 MG TABLET PO SCH ×2 (06:33→17:02)
[2022-02-13 08:00] VITALS: BP 110/80
[2022-02-13 08:06] LABS: GLUCOMETER DEV NAME(LOC) 3E.I 2; GLUCOSE,POINT OF CARE 84 MG/DL (70-110)
[2022-02-13] MEDS: RisperiDONE 1 MG TABLET PO SCH ×2 (10:18→17:02)
[2022-02-13] MEDS: AmLODIPine BESYLATE 5 MG TABLET PO SCH (10:18)
[2022-02-13] MEDS: APIXABAN 5 MG TABLET PO SCH ×2 (10:18→17:02)
[2022-02-13 16:00] VITALS: BP 127/69
[2022-02-13 16:51] LABS: GLUCOMETER DEV NAME(LOC) 3E.I 2; GLUCOSE,POINT OF CARE 119 MG/DL (70-110)
[2022-02-13] MEDS: ATORVASTATIN CALCIUM 40 MG TABLET PO SCH (20:36)
[2022-02-13] MEDS: OLANZapine 5 MG TABLET PO SCH (20:36)
[2022-02-13 23:20] LABS: APPEARANCE,URINE CLEAR (CLEAR); BILIRUBIN,URINE NEGATIVE (NEGATIVE); GLUCOSE, URINE (UA) NEGATIVE (NEGATIVE); KETONES,URINE NEGATIVE (NEGATIVE); LEUKOCYTE ESTERASE ,URINE NEGATIVE (NEGATIVE); NITRATE,URINE NEGATIVE (NEGATIVE); OCCULT BLOOD,URINE NEGATIVE (NEGATIVE); PH,URINE 6.5 (5.0-8.0); PROTEIN,URINE NEGATIVE (NEGATIVE); SPECIFIC GRAVITIY, URINE 1.003 (1.003-1.030); UROBILINOGEN,URINE <=1.0 mg/dL (<=1.0)
[2022-02-13 23:24] LABS: BACTERIA,URINE None Seen /HPF (None Seen); RBC,URINE None Seen /HPF (0-2); SQUAMOUS EPITHELIAL CELL,UR None Seen /LPF (None Seen); WBC,URINE None Seen /HPF (0-5)
[2022-02-13 23:26] LABS: AMPHET/METH SCREEN,URINE NEGATIVE (NEGATIVE); BARBITURATE SCREEN, URINE NEGATIVE (NEGATIVE); BENZODIAZEPINES SCREEN,URINE NEGATIVE (NEGATIVE); CANNABINOID SCREEN,URINE NEGATIVE (NEGATIVE); COCAINE SCREEN,URINE NEGATIVE (NEGATIVE); METHADONE SCREEN, URINE NEGATIVE (NEGATIVE); OPIATE SCREEN,URINE NEGATIVE (NEGATIVE)
[2022-02-13 23:36] LABS: PHENCYCLIDINE SCREEN,URINE NEGATIVE (NEGATIVE)
[2022-02-13] MEDS: ZOLPIDEM TARTRATE 10 MG TABLET PO PRN (23:56)
[2022-02-13] MEDS: LORazepam 2 MG TABLET PO PRN (23:56)
[2022-02-14 05:46] LABS: GLUCOMETER DEV NAME(LOC) 3E.I 2; GLUCOSE,POINT OF CARE 117 MG/DL (70-110)
[2022-02-14] MEDS: MetFORMIN HCL 850 MG TABLET PO SCH ×2 (06:34→17:21)
[2022-02-14 06:56] LABS: COVID AG,FIA SOURCE NASAL SWAB
[2022-02-14 08:00] VITALS: BP 135/55
[2022-02-14] MEDS: RisperiDONE 1 MG TABLET PO SCH ×2 (08:53→16:20)
[2022-02-14] MEDS: APIXABAN 5 MG TABLET PO SCH ×2 (08:53→16:20)
[2022-02-14] MEDS: AmLODIPine BESYLATE 5 MG TABLET PO SCH (08:53)
[2022-02-14 16:00] VITALS: BP 138/68
[2022-02-14 16:16] LABS: GLUCOMETER DEV NAME(LOC) 3EX.2; GLUCOSE,POINT OF CARE 153 MG/DL (70-110)
[2022-02-14] MEDS: ATORVASTATIN CALCIUM 40 MG TABLET PO SCH (20:09)
[2022-02-14] MEDS: OLANZapine 5 MG TABLET PO SCH (20:10)
[2022-02-14] MEDS: ZOLPIDEM TARTRATE 10 MG TABLET PO PRN (20:15)
[2022-02-15 05:31] LABS: GLUCOMETER DEV NAME(LOC) 3E.I 2; GLUCOSE,POINT OF CARE 137 MG/DL (70-110)
[2022-02-15] MEDS: MetFORMIN HCL 850 MG TABLET PO SCH ×2 (07:03→16:13)
[2022-02-15 08:00] VITALS: BP 98/45
[2022-02-15] MEDS: RisperiDONE 1 MG TABLET PO SCH ×2 (08:09→16:13)
[2022-02-15] MEDS: AmLODIPine BESYLATE 5 MG TABLET PO SCH ×2 (08:09→09:00)
[2022-02-15] MEDS: APIXABAN 5 MG TABLET PO SCH ×2 (08:09→16:13)
[2022-02-15 09:38] VITALS: BP 107/48
[2022-02-15 16:06] VITALS: BP 131/68
[2022-02-15 17:11] LABS: GLUCOMETER DEV NAME(LOC) 3EX.2; GLUCOSE,POINT OF CARE 159 MG/DL (70-110)
[2022-02-15] MEDS: ZOLPIDEM TARTRATE 10 MG TABLET PO PRN (20:11)
[2022-02-15] MEDS: OLANZapine 5 MG TABLET PO SCH (20:11)
[2022-02-15] MEDS: ATORVASTATIN CALCIUM 40 MG TABLET PO SCH (20:11)
[2022-02-15 20:42] VITALS: BP 125/80
[2022-02-16 05:52] LABS: GLUCOMETER DEV NAME(LOC) 3E.I 2; GLUCOSE,POINT OF CARE 113 MG/DL (70-110)
[2022-02-16] MEDS: MetFORMIN HCL 850 MG TABLET PO SCH ×2 (06:31→17:25)
[2022-02-16] MEDS: RisperiDONE 1 MG TABLET PO SCH ×2 (08:51→17:25)
[2022-02-16] MEDS: AmLODIPine BESYLATE 5 MG TABLET PO SCH (08:52)
[2022-02-16] MEDS: APIXABAN 5 MG TABLET PO SCH ×2 (08:52→17:25)
[2022-02-16 09:12] VITALS: BP 145/89
[2022-02-16 16:06] VITALS: BP 136/56
[2022-02-16 17:32] LABS: GLUCOMETER DEV NAME(LOC) 3EX.2; GLUCOSE,POINT OF CARE 142 MG/DL (70-110)
[2022-02-16] MEDS: OLANZapine 5 MG TABLET PO SCH (20:20)
[2022-02-16] MEDS: ATORVASTATIN CALCIUM 40 MG TABLET PO SCH (20:20)
[2022-02-17] MEDS: LORazepam 2 MG TABLET PO PRN ×2 (00:25→20:19)
[2022-02-17 06:12] LABS: GLUCOMETER DEV NAME(LOC) 3E.I 2; GLUCOSE,POINT OF CARE 99 MG/DL (70-110)
[2022-02-17] MEDS: MetFORMIN HCL 850 MG TABLET PO SCH ×2 (06:45→16:48)
[2022-02-17 08:00] VITALS: BP 124/62
[2022-02-17] MEDS: AmLODIPine BESYLATE 5 MG TABLET PO SCH (08:33)
[2022-02-17] MEDS: APIXABAN 5 MG TABLET PO SCH ×2 (08:34→16:10)
[2022-02-17] MEDS: RisperiDONE 1 MG TABLET PO SCH ×2 (08:34→16:10)
[2022-02-17 16:00] VITALS: BP 140/87
[2022-02-17 16:32] LABS: GLUCOMETER DEV NAME(LOC) 3EX.2; GLUCOSE,POINT OF CARE 140 MG/DL (70-110)
[2022-02-17] MEDS: ATORVASTATIN CALCIUM 40 MG TABLET PO SCH (20:18)
[2022-02-17] MEDS: OLANZapine 5 MG TABLET PO SCH (20:18)
[2022-02-18 05:57] LABS: GLUCOMETER DEV NAME(LOC) 3E.I 2; GLUCOSE,POINT OF CARE 107 MG/DL (70-110)
[2022-02-18] MEDS: MetFORMIN HCL 850 MG TABLET PO SCH ×2 (06:42→16:40)
[2022-02-18 08:30] VITALS: BP 119/60
[2022-02-18] MEDS: APIXABAN 5 MG TABLET PO SCH ×2 (08:43→16:40)
[2022-02-18] MEDS: AmLODIPine BESYLATE 5 MG TABLET PO SCH (08:44)
[2022-02-18] MEDS: RisperiDONE 1 MG TABLET PO SCH ×2 (08:44→16:41)
[2022-02-18] MEDS: MAG HYDROX/AL HYDROX/SIMETH ES 30 ML SUSPENSION UDCUP PO PRN (14:53)
[2022-02-18 16:03] VITALS: BP 141/67
[2022-02-18 17:36] LABS: GLUCOMETER DEV NAME(LOC) 3EX.2; GLUCOSE,POINT OF CARE 199 MG/DL (70-110)
[2022-02-18] MEDS ORDERED: LISI-894 PO (20:05)
[2022-02-18] MEDS: ATORVASTATIN CALCIUM 40 MG TABLET PO SCH (20:22)
[2022-02-18] MEDS: OLANZapine 5 MG TABLET PO SCH (20:22)
[2022-02-19 05:46] LABS: GLUCOMETER DEV NAME(LOC) 3E.I 2; GLUCOSE,POINT OF CARE 98 MG/DL (70-110)
[2022-02-19] MEDS: MetFORMIN HCL 850 MG TABLET PO SCH ×2 (06:30→17:00)
[2022-02-19] MEDS: RisperiDONE 1 MG TABLET PO SCH ×2 (08:45→17:00)
[2022-02-19] MEDS: AmLODIPine BESYLATE 5 MG TABLET PO SCH ×2 (08:45→09:00)
[2022-02-19] MEDS: APIXABAN 5 MG TABLET PO SCH ×2 (08:45→17:00)
[2022-02-19 09:33] VITALS: BP 109/70
[2022-02-19] MEDS: MAG HYDROX/AL HYDROX/SIMETH ES 30 ML SUSPENSION UDCUP PO PRN (13:53)
[2022-02-19 16:41] LABS: GLUCOMETER DEV NAME(LOC) 3E.I 2; GLUCOSE,POINT OF CARE 198 MG/DL (70-110)
[2022-02-19 16:57] VITALS: BP 137/65
[2022-02-19] MEDS: ATORVASTATIN CALCIUM 40 MG TABLET PO SCH (21:05)
[2022-02-19] MEDS: OLANZapine 5 MG TABLET PO SCH (21:05)
[2022-02-20 06:16] LABS: GLUCOMETER DEV NAME(LOC) 3E.I 2; GLUCOSE,POINT OF CARE 90 MG/DL (70-110)
[2022-02-20] MEDS: MetFORMIN HCL 850 MG TABLET PO SCH ×2 (06:44→16:55)
[2022-02-20] MEDS: AmLODIPine BESYLATE 5 MG TABLET PO SCH (08:29)
[2022-02-20] MEDS: APIXABAN 5 MG TABLET PO SCH ×2 (08:29→16:55)
[2022-02-20] MEDS: RisperiDONE 1 MG TABLET PO SCH ×2 (08:29→16:55)
[2022-02-20 08:46] VITALS: BP 139/63
[2022-02-20] MEDS: MAGNESIUM HYDROXIDE SUSPENSION 30 ML UDCUP PO PRN (10:32)
[2022-02-20 16:07] VITALS: BP 111/75
[2022-02-20 16:26] LABS: GLUCOMETER DEV NAME(LOC) 3E.I 2; GLUCOSE,POINT OF CARE 214 MG/DL (70-110)
[2022-02-20] MEDS: LORazepam 2 MG TABLET PO PRN (20:54)
[2022-02-20] MEDS: ATORVASTATIN CALCIUM 40 MG TABLET PO SCH (20:54)
[2022-02-20] MEDS: OLANZapine 5 MG TABLET PO SCH (20:54)
[2022-02-21 06:11] LABS: GLUCOMETER DEV NAME(LOC) 3E.I 2; GLUCOSE,POINT OF CARE 101 MG/DL (70-110)
[2022-02-21] MEDS: MetFORMIN HCL 850 MG TABLET PO SCH ×2 (06:51→17:00)
[2022-02-21 06:57] LABS: COVID AG,FIA SOURCE NASAL SWAB
[2022-02-21 08:00] VITALS: BP 106/64
[2022-02-21] MEDS: AmLODIPine BESYLATE 5 MG TABLET PO SCH (08:32)
[2022-02-21] MEDS: RisperiDONE 1 MG TABLET PO SCH ×2 (08:32→17:00)
[2022-02-21] MEDS: APIXABAN 5 MG TABLET PO SCH ×2 (08:33→17:00)
[2022-02-21] MEDS: MAG HYDROX/AL HYDROX/SIMETH ES 30 ML SUSPENSION UDCUP PO PRN (14:23)
[2022-02-21 16:20] VITALS: BP 125/68
[2022-02-21 17:02] LABS: GLUCOMETER DEV NAME(LOC) 3EX.2; GLUCOSE,POINT OF CARE 132 MG/DL (70-110)
[2022-02-21] MEDS: LORazepam 2 MG TABLET PO PRN (20:40)
[2022-02-21] MEDS: OLANZapine 5 MG TABLET PO SCH (20:40)
[2022-02-21] MEDS: ATORVASTATIN CALCIUM 40 MG TABLET PO SCH (20:40)
[2022-02-22 06:31] LABS: GLUCOMETER DEV NAME(LOC) 3E.I 2; GLUCOSE,POINT OF CARE 112 MG/DL (70-110)
[2022-02-22] MEDS: MetFORMIN HCL 850 MG TABLET PO SCH ×2 (06:57→16:36)
[2022-02-22] MEDS: APIXABAN 5 MG TABLET PO SCH ×2 (08:55→16:37)
[2022-02-22] MEDS: RisperiDONE 1 MG TABLET PO SCH ×2 (08:56→16:36)
[2022-02-22] MEDS: AmLODIPine BESYLATE 5 MG TABLET PO SCH (08:56)
[2022-02-22 09:16] VITALS: BP 127/65
[2022-02-22 17:21] LABS: GLUCOMETER DEV NAME(LOC) 3E.I 2; GLUCOSE,POINT OF CARE 162 MG/DL (70-110)
[2022-02-22] MEDS: MAG HYDROX/AL HYDROX/SIMETH ES 30 ML SUSPENSION UDCUP PO PRN (18:59)
[2022-02-22] MEDS: ATORVASTATIN CALCIUM 40 MG TABLET PO SCH (20:19)
[2022-02-22] MEDS: OLANZapine 5 MG TABLET PO SCH (20:19)
[2022-02-23 06:16] LABS: GLUCOMETER DEV NAME(LOC) 3E.I 2; GLUCOSE,POINT OF CARE 126 MG/DL (70-110)
[2022-02-23] MEDS: MetFORMIN HCL 850 MG TABLET PO SCH ×2 (06:47→16:14)
[2022-02-23 08:00] VITALS: BP 157/60
[2022-02-23] MEDS: APIXABAN 5 MG TABLET PO SCH ×2 (08:29→16:14)
[2022-02-23] MEDS: RisperiDONE 1 MG TABLET PO SCH ×2 (08:29→16:14)
[2022-02-23] MEDS: AmLODIPine BESYLATE 5 MG TABLET PO SCH (08:30)
[2022-02-23 16:16] VITALS: BP 155/60
[2022-02-23 16:56] LABS: GLUCOMETER DEV NAME(LOC) 3EX.2; GLUCOSE,POINT OF CARE 194 MG/DL (70-110)
[2022-02-23] MEDS: OLANZapine 5 MG TABLET PO SCH (20:11)
[2022-02-23] MEDS: ATORVASTATIN CALCIUM 40 MG TABLET PO SCH (20:11)
[2022-02-24 06:26] LABS: GLUCOMETER DEV NAME(LOC) 3E.I 2; GLUCOSE,POINT OF CARE 117 MG/DL (70-110)
[2022-02-24] MEDS: MetFORMIN HCL 850 MG TABLET PO SCH ×2 (06:41→16:52)
[2022-02-24 08:00] VITALS: BP 157/79
[2022-02-24] MEDS: APIXABAN 5 MG TABLET PO SCH ×2 (08:51→16:52)
[2022-02-24] MEDS: AmLODIPine BESYLATE 5 MG TABLET PO SCH (08:51)
[2022-02-24] MEDS: RisperiDONE 1 MG TABLET PO SCH ×2 (08:51→16:52)
[2022-02-24] MEDS: MAG HYDROX/AL HYDROX/SIMETH ES 30 ML SUSPENSION UDCUP PO PRN (11:56)
[2022-02-24 16:03] VITALS: BP 118/56
[2022-02-24 16:31] LABS: GLUCOMETER DEV NAME(LOC) 3EX.2; GLUCOSE,POINT OF CARE 154 MG/DL (70-110)
[2022-02-24] MEDS: ATORVASTATIN CALCIUM 40 MG TABLET PO SCH (21:13)
[2022-02-24] MEDS: OLANZapine 5 MG TABLET PO SCH (21:13)
[2022-02-25 06:26] LABS: GLUCOMETER DEV NAME(LOC) 3E.I 2; GLUCOSE,POINT OF CARE 123 MG/DL (70-110)
[2022-02-25] MEDS: MetFORMIN HCL 850 MG TABLET PO SCH ×2 (06:40→16:26)
[2022-02-25 08:00] VITALS: BP 142/54
[2022-02-25] MEDS: APIXABAN 5 MG TABLET PO SCH ×2 (08:34→16:26)
[2022-02-25] MEDS: AmLODIPine BESYLATE 5 MG TABLET PO SCH (08:34)
[2022-02-25] MEDS: RisperiDONE 1 MG TABLET PO SCH ×2 (08:34→16:26)
[2022-02-25] MEDS: OMEPRAZOLE 20 MG CAPSULE PO SCH (08:34)
[2022-02-25 16:00] VITALS: BP 113/70
[2022-02-25 16:41] LABS: GLUCOMETER DEV NAME(LOC) 3E.I 2; GLUCOSE,POINT OF CARE 174 MG/DL (70-110)
[2022-02-25] MEDS: LORazepam 2 MG TABLET PO PRN (16:44)
[2022-02-25 20:05] VITALS: BP 113/70
[2022-02-25] MEDS: ATORVASTATIN CALCIUM 40 MG TABLET PO SCH (20:42)
[2022-02-25] MEDS: OLANZapine 5 MG TABLET PO SCH (20:42)
[2022-02-26 06:11] LABS: GLUCOMETER DEV NAME(LOC) 3E.I 2; GLUCOSE,POINT OF CARE 111 MG/DL (70-110)
[2022-02-26] MEDS: MetFORMIN HCL 850 MG TABLET PO SCH ×2 (06:56→16:12)
[2022-02-26 08:00] VITALS: BP 138/68
[2022-02-26] MEDS: OMEPRAZOLE 20 MG CAPSULE PO SCH (09:05)
[2022-02-26] MEDS: AmLODIPine BESYLATE 5 MG TABLET PO SCH (09:05)
[2022-02-26] MEDS: RisperiDONE 1 MG TABLET PO SCH ×2 (09:06→16:12)
[2022-02-26] MEDS: APIXABAN 5 MG TABLET PO SCH ×2 (09:06→16:12)
[2022-02-26 16:16] LABS: GLUCOMETER DEV NAME(LOC) 3E.I 2; GLUCOSE,POINT OF CARE 180 MG/DL (70-110)
[2022-02-26 17:53] VITALS: BP 124/80
[2022-02-26] MEDS: OLANZapine 5 MG TABLET PO SCH (20:04)
[2022-02-26] MEDS: ATORVASTATIN CALCIUM 40 MG TABLET PO SCH (20:04)
[2022-02-26] MEDS: ZOLPIDEM TARTRATE 10 MG TABLET PO PRN (20:40)
[2022-02-27 06:16] LABS: GLUCOMETER DEV NAME(LOC) 3E.I 2; GLUCOSE,POINT OF CARE 90 MG/DL (70-110)
[2022-02-27] MEDS: MetFORMIN HCL 850 MG TABLET PO SCH ×2 (06:44→16:37)
[2022-02-27 08:00] VITALS: BP 110/60
[2022-02-27] MEDS: APIXABAN 5 MG TABLET PO SCH ×2 (08:24→16:37)
[2022-02-27] MEDS: RisperiDONE 1 MG TABLET PO SCH ×2 (08:25→16:37)
[2022-02-27] MEDS: AmLODIPine BESYLATE 5 MG TABLET PO SCH (08:25)
[2022-02-27] MEDS: OMEPRAZOLE 20 MG CAPSULE PO SCH (08:25)
[2022-02-27 16:00] VITALS: BP 129/58
[2022-02-27 16:11] LABS: GLUCOMETER DEV NAME(LOC) 3E.I 2; GLUCOSE,POINT OF CARE 182 MG/DL (70-110)
[2022-02-27 20:26] LABS: GLUCOMETER DEV NAME(LOC) 3E.I 2; GLUCOSE,POINT OF CARE 143 MG/DL (70-110)
[2022-02-27] MEDS: ATORVASTATIN CALCIUM 40 MG TABLET PO SCH (20:40)
[2022-02-27] MEDS: OLANZapine 5 MG TABLET PO SCH (20:40)
[2022-02-28 06:11] LABS: GLUCOMETER DEV NAME(LOC) 3E.I 2; GLUCOSE,POINT OF CARE 136 MG/DL (70-110)
[2022-02-28 06:24] LABS: COVID AG,FIA SOURCE NASAL SWAB
[2022-02-28] MEDS: MetFORMIN HCL 850 MG TABLET PO SCH ×2 (06:51→17:07)
[2022-02-28 08:10] VITALS: BP 148/86
[2022-02-28] MEDS: RisperiDONE 1 MG TABLET PO SCH ×2 (08:10→16:29)
[2022-02-28] MEDS: APIXABAN 5 MG TABLET PO SCH ×2 (08:10→16:28)
[2022-02-28] MEDS: OMEPRAZOLE 20 MG CAPSULE PO SCH (08:10)
[2022-02-28] MEDS: AmLODIPine BESYLATE 5 MG TABLET PO SCH (08:11)
[2022-02-28 16:10] VITALS: BP 140/76
[2022-02-28 16:10] LABS: GLUCOMETER DEV NAME(LOC) 3E.I 2; GLUCOSE,POINT OF CARE 164 MG/DL (70-110)
[2022-02-28 20:41] LABS: GLUCOMETER DEV NAME(LOC) 3E.I 2; GLUCOSE,POINT OF CARE 147 MG/DL (70-110)
[2022-02-28] MEDS: ATORVASTATIN CALCIUM 40 MG TABLET PO SCH (20:44)
[2022-02-28] MEDS: OLANZapine 5 MG RAPDIS TABLET PO PRN ×3 (20:44→21:09)
[2022-02-28] MEDS: OLANZapine 5 MG TABLET PO SCH (21:08)
[2022-02-28 21:22] VITALS: BP 136/66
[2022-03-01 05:51] LABS: GLUCOMETER DEV NAME(LOC) 3E.I 2; GLUCOSE,POINT OF CARE 121 MG/DL (70-110)
[2022-03-01] MEDS: MetFORMIN HCL 850 MG TABLET PO SCH ×2 (07:02→17:11)
[2022-03-01 09:25] VITALS: BP 115/62
[2022-03-01] MEDS: AmLODIPine BESYLATE 5 MG TABLET PO SCH (09:30)
[2022-03-01] MEDS: APIXABAN 5 MG TABLET PO SCH ×2 (09:30→16:11)
[2022-03-01] MEDS: RisperiDONE 1 MG TABLET PO SCH ×2 (09:30→16:11)
[2022-03-01] MEDS: OMEPRAZOLE 20 MG CAPSULE PO SCH (09:30)
[2022-03-01 16:23] VITALS: BP 112/46
[2022-03-01 16:51] LABS: GLUCOMETER DEV NAME(LOC) 3E.I 2; GLUCOSE,POINT OF CARE 172 MG/DL (70-110)
[2022-03-01] MEDS: OLANZapine 5 MG TABLET PO SCH (20:41)
[2022-03-01] MEDS: ATORVASTATIN CALCIUM 40 MG TABLET PO SCH (20:41)
[2022-03-01] MEDS: ZOLPIDEM TARTRATE 10 MG TABLET PO PRN (22:05)
[2022-03-02] MEDS: MetFORMIN HCL 850 MG TABLET PO SCH (07:02)
[2022-03-02] MEDS: AmLODIPine BESYLATE 5 MG TABLET PO SCH ×2 (08:48→09:00)
[2022-03-02] MEDS: OMEPRAZOLE 20 MG CAPSULE PO SCH (08:48)
[2022-03-02] MEDS: APIXABAN 5 MG TABLET PO SCH (08:48)
[2022-03-02] MEDS: RisperiDONE 1 MG TABLET PO SCH (08:48)
[2022-03-02 08:58] LABS: GLUCOMETER DEV NAME(LOC) 3E.I 2; GLUCOSE,POINT OF CARE 134 MG/DL (70-110)
[2022-03-02 09:55] VITALS: BP 97/46
[2022-03-02] MEDS ORDERED: RISP1TAB98 PO (10:47)
[2022-03-02] MEDS ORDERED: OLAN5TAB52 PO (10:47)
[2022-03-02] MEDS ORDERED: OMEP20 PO (11:03)
[2022-03-02] MEDS ORDERED: AMLO-257 PO (11:03)
== END 2022-03-02 13:20 | disposition home or self-care (01) | DRG 750 ==
LOC: EMS 08:42 → MERGE 13:04 → 3EI 13:04
PROVIDERS: ADMIT Psychiatry & Neurology Child & Adolescent Psychiatry; ATTEND Psychiatry & Neurology Child & Adolescent Psychiatry
DX: F25.1 Schizoaffective disorder, depressive type (principal); R45.851 Suicidal ideations; I48.20 Chronic atrial fibrillation, unspecified; F41.9 Anxiety disorder, unspecified; I10 Essential (primary) hypertension; Z20.822 Contact with and (suspected) exposure to COVID-19; J44.9 Chronic obstructive pulmonary disease, unspecified; E78.5 Hyperlipidemia, unspecified; F19.10 Other psychoactive substance abuse, uncomplicated; F10.10 Alcohol abuse, uncomplicated; K59.00 Constipation, unspecified; Z88.8 Allergy status to other drugs, medicaments and biological substances; Z91.14 Patient's other noncompliance with medication regimen; Z59.00 Homelessness unspecified; Z79.01 Long term (current) use of anticoagulants; Z85.118 Personal history of other malignant neoplasm of bronchus and lung; Z86.73 Personal history of transient ischemic attack (TIA), and cerebral infarction without residual deficits
CPT/HCPCS: 80053; 80061; 80307; 81001; 82962; 83036; 85025; 87081; 99285; G0480

== ENCOUNTER 2022-08-06 22:02 | Emergency (ER) | payer MEDICAID ==
[~2022-08-06] VITALS: Ht 165.1 cm; Wt 75.0 kg
[~2022-08-06 22:02] MED LIST changes: -ALBU8HFA IH; -AMIO200 PO; +AMLO-257 PO; -ASPI-1444 PO; -ATOR40TA28 PO; -ESCI10 PO; -LISI40TA9 PO; -LORA10TA7 PO; -MAG30ORA11 PO; -MELA5TAB40 PO; -METO25 PO; -NALT50TA PO; -OMEG-135 PO; +OMEP20 PO; -PALI117D IM; -POLY238P PO
[2022-08-06 22:33] LABS: MEAN CORPUSCULAR HEMOGLOBIN 24.8 pg (26.0-34.0)
[2022-08-06 22:35] LABS: BASOPHILS % (AUTO) 0.8 % (0.0-2.0); EOSINOPHILS % (AUTO) 2.9 % (1.0-6.0); HEMATOCRIT 37.8 % (36-46); HEMOGLOBIN 11.8 g/dL (12.0-16.0); LYMPHOCYTES # (AUTO) 1.8 K/uL (1.0-4.8); LYMPHOCYTES % (AUTO) 28.6 % (22.0-44.0); MEAN CORPUSCULAR HGB CONC 31.3 G/dL (31.0-37.0); MEAN CORPUSCULAR VOLUME 79 fL (80-100); MONOCYTES # (AUTO) 0.5 K/uL (0.1-1.0); MONOCYTES % (AUTO) 8.1 % (2.0-9.0); NEUTROPHILS # (AUTO) 3.8 K/uL (1.8-7.7); NEUTROPHILS % (AUTO) 59.6 % (40.0-70.0); PLATELET COUNT (AUTO) 371 K/uL (150-450); RED BLOOD CELL COUNT(AUTO) 4.79 MIL/uL (4.00-5.20); RED CELL DISTRIBUTION WIDTH 15.9 % (11.5-14.5)
[2022-08-06] MEDS ORDERED: DIGO125T84 PO (22:39)
[2022-08-06] MEDS ORDERED: AMIO200T68 PO (22:39)
[2022-08-06] MEDS ORDERED: MULT-1203 PO (22:39)
[2022-08-06] MEDS ORDERED: DIPH25CA85 PO (22:39)
[2022-08-06] MEDS ORDERED: CARV3 PO (22:39)
[2022-08-06 22:44] LABS: PROTHROMBIN TIME 10.9 SEC (9.4-11.6)
[2022-08-06 22:48] LABS: ANION GAP 8 mmol/L (8-16); CALCIUM, TOTAL 9.3 mg/dL (8.8-10.5); CARBON DIOXIDE 29 mmol/L (22-29); CHLORIDE 103 mmol/L (98-107); CREATININE 0.76 mg/dL (0.60-1.30); GLUCOSE,RANDOM 298 mg/dL (70-110); POTASSIUM 4.1 mmol/L (3.5-5.1); SODIUM SERUM 140 mmol/L (136-145); UREA NITROGEN, BLOOD 13 mg/dL (7-18)
[2022-08-06 22:49] LABS: GLOMERULAR FILTR. RATE CALC > 60 mL/min (>60)
[2022-08-06 22:53] LABS: ALANINE AMINOTRANSFERASE 30 U/L (12-78); ALBUMIN 2.8 g/dL (3.4-5.0); ALKALINE PHOSPHATASE 126 U/L (46-116); ASPARTATE AMINOTRANSFERASE 21 U/L (15-37); BILIRUBIN,TOTAL 0.2 mg/dL (0.1-1.0); TOTAL PROTEIN, SERUM 7.2 g/dL (6.4-8.2)
[2022-08-06 23:24] LABS: COVID AG,FIA SOURCE NASAL SWAB
[2022-08-06 23:44] LABS: INFLUENZA TYPE A NEGATIVE FOR TYPE A (NEGATIVE); INFLUENZA TYPE B NEGATIVE FOR TYPE B (NEGATIVE)
[2022-08-06] MEDS ORDERED: LORazepam 0.5 MG TABLET PO ONE (23:45)
[2022-08-06] MEDS ORDERED: LORazepam 1 MG TABLET PO ONE (23:45)
[2022-08-07] MEDS ORDERED: ACETAMINOPHEN 500 MG TABLET PO ONE (01:30)
[2022-08-07 05:56] VITALS: BP 151/66
[2022-08-07] MEDS ORDERED: ACETAMINOPHEN 325 MG TABLET PO ONE (08:00)
== END 2022-08-07 08:50 | disposition home or self-care (01) ==
LOC: EMS 22:03
DX: K52.9 Noninfective gastroenteritis and colitis, unspecified (principal); I48.91 Unspecified atrial fibrillation; I21.9 Acute myocardial infarction, unspecified; I10 Essential (primary) hypertension; F31.9 Bipolar disorder, unspecified; J45.909 Unspecified asthma, uncomplicated; J44.9 Chronic obstructive pulmonary disease, unspecified; F20.9 Schizophrenia, unspecified; I95.9 Hypotension, unspecified; Z98.890 Other specified postprocedural states; Z20.822 Contact with and (suspected) exposure to COVID-19; Z88.8 Allergy status to other drugs, medicaments and biological substances
CPT/HCPCS: 80053; 85025; 85610; 85730; 87804; 99285